=== PATIENT | female | born 1985 | race Two or more races ===

== ENCOUNTER 2020-05-08 06:18 | Emergency (ER) | payer MEDICAID, OTHER ==
[~2020-05-08] VITALS: Ht 172.7 cm; Wt 93.0 kg
[~2020-05-08 06:18] MED LIST: IBUPROFEN600 M1 ORAL; ONDANSETRON ODT4 MG BC; TYLENOL325 MG ORAL
[2020-05-08 06:27] VITALS: BP 118/88
[2020-05-08] MEDS ORDERED: Metoclopramide 10mg/2ml Inj IVP ONE (06:45)
[2020-05-08] MEDS ORDERED: Morphine Sulfate 4mg/ml Inj (IV USE ONLY) IVP ONE (06:45)
[2020-05-08 07:00] LABS: BASOPHILS % (AUTO) 0.8 % (0.0-2.0); EOSINOPHILS % (AUTO) 1.3 % (0.0-3.0); HEMOGLOBIN 15.1 G/DL (12.0-16.0); MEAN CORPUSCULAR VOLUME 87 FL (80-99); MONOCYTES % (AUTO) 5.3 % (1.0-10.0); NEUTROPHILS % (AUTO) 82.6 % (45.0-75.0); PLATELET COUNT 310 K/UL (150-450); RED BLOOD COUNT 4.97 M/UL (4.20-5.40); RED CELL DISTRIBUTION WIDTH 11.5 % (11.6-14.8); WHITE BLOOD COUNT 16.5 K/UL (4.8-10.8)
[2020-05-08 07:12] LABS: ANION GAP 11 mmol/L (5-15); BLOOD UREA NITROGEN 19 mg/dL (7-18); CALCIUM 9.1 MG/DL (8.5-10.1); CARBON DIOXIDE 25 MMOL/L (21-32); CHLORIDE 105 MMOL/L (98-107); POTASSIUM 3.9 MMOL/L (3.5-5.1); SODIUM 141 MMOL/L (136-145)
[2020-05-08 07:16] LABS: ALANINE AMINOTRANSFERASE 31 U/L (12-78); ALBUMIN 4.4 G/DL (3.4-5.0); ALBUMIN/GLOBULIN RATIO 1.2 (1.0-2.7); ALKALINE PHOSPHATASE 76 U/L (46-116); ASPARTATE AMINO TRANSFERASE 29 U/L (15-37); BILIRUBIN,TOTAL 0.4 MG/DL (0.2-1.0)
[2020-05-08 07:56] LABS: APPEARANCE,URINE CLEAR; BILIRUBIN, URINE NEGATIVE (NEGATIVE); COLOR,URINE BROWN; GLUCOSE, URINE (UA) NEGATIVE (NEGATIVE); KETONES,URINE 3+ (NEGATIVE); LEUKOCYTE ESTERASE ,URINE 2+ (NEGATIVE); NITRITE,URINE NEGATIVE (NEGATIVE); PH,URINE 6.5 (4.5-8.0); PROTEIN,URINE 2+ (NEGATIVE); UROBILINOGEN,URINE 1 MG/DL (0.0-1.0)
--- NOTE | 2020-05-08 09:28 | Emergency Room Report ---
History of Present Illness General Chief Complaint: Abdominal Pain Source: Patient Present Illness HPI 35-year-old female presents complaining of abdominal pain. Brought in by EMS from home. States symptoms started tonight. Pain is epigastric, burning, 9 out of 10, nonradiating. Notes nausea, denies vomiting. Denies fevers or chills. States she has had problem with her gallbladder before. No other aggravating relieving factors. Denies any other associated symptoms Allergies: Coded Allergies: No Known Allergies (Unverified , 02/10/20) COVID-19 Screening Contact w/high risk pt: No Recent Travel to affected area: No Experienced COVID-19 symptoms?: No COVID-19 Testing performed LABEL MAKER: No Patient History Past Medical History: none Past Surgical History: none Pertinent Family History: none Social History: Denies: smoking, alcohol use, drug use Now: No Immunizations: UTD Reviewed Nursing Documentation: PMH: Agreed; PSxH: Agreed Nursing Documentation-PMH Past Medical History: No Stated History Review of Systems All Other Systems: negative except mentioned in HPI Physical Exam Vital Signs Date Time Temp Pulse Resp B/P (MAP) Pulse Ox O2 Delivery O2 Flow Rate FiO2 05/08/20 06:19 98.2 120 17 118/88 (98) 99 Room Air Sp02 EP Interpretation: reviewed, normal General Appearance: alert, GCS 15, non-toxic, mild distress Head: normocephalic, atraumatic Eyes: bilateral eye normal inspection, bilateral eye PERRL ENT: hearing grossly normal, normal pharynx, no angioedema, normal voice Neck: full range of motion, supple/symm/no masses Respiratory: chest non-tender, lungs clear, normal breath sounds, speaking full sentences Cardiovascular #1: regular rate, rhythm, no edema Cardiovascular #2: 2+ carotid (R), 2+ carotid (L), 2+ radial (R), 2+ radial (L), 2+ dorsalis pedis (R), 2+ dorsalis pedis (L) Gastrointestinal: normal bowel sounds, soft, non-distended, no guarding, no rebound, tenderness Rectal: deferred Genitourinary: normal inspection, no CVA tenderness Musculoskeletal: back normal, normal range of motion, gait/station normal, non- tender Neurologic: alert, motor strength/tone normal, oriented x3, sensory intact, responsive, speech normal Psychiatric: judgement/insight normal, memory normal, mood/affect normal, no suicidal/homicidal ideation Reflexes: 3+ bicep (R), 3+ bicep (L), 3+ tricep (R), 3+ tricep (L), 3+ knee (R), 3+ knee (L) Skin: no rash Lymphatic: no adenopathy Medical Decision Making Diagnostic Impression: Primary Impression: Cholelithiasis Qualified Codes: K80.20 - Calculus of gallbladder without cholecystitis without obstruction ER Course Hospital Course 35-year-old F presents to ED with RUQ abdominal pain Differential diagnosis includes - pyelonephritis, kidney stone, gastritis, cholecystitis Clinical course Patient placed on stretcher. After initial history and physical I ordered labs, IV fluids, pain medications and US Labs - noted leukocytosis, electrolytes ok, LFTs normal, UA unremarkable US shows gallstones, no GB thickening, negative murphys sign, CBD dilated Upon reassessment, patient states pain has improved. Patient afebrile, nontoxic-appearing. Abdomen soft. LFTs unremarkable. No signs of biliary obstruction. Safe for discharge for close outpatient follow-up. States she is currently awaiting referral for surgery. States she is breast-feeding. I feel this is a highly complex case requiring extensive working including EKG/Rhythm strip, Xray/CT/US, Blood/urine lab work, repeat exams while in ED, and administration of strong opiates/narcotics for pain control, admission to hospital or close patient follow up. Diagnosis - cholelithiasis Stable and discharged to home with prescription for Motrin, tylenol, zofran. Followup with PMD. Return to ED if symptoms recur or worsen Laboratory Tests Test 05/08/20 06:50 05/08/20 07:10 White Blood Count 16.5 K/UL (4.8-10.8) H Red Blood Count 4.97 M/UL (4.20-5.40) Hemoglobin 15.1 G/DL (12.0-16.0) Hematocrit 43.0 % (37.0-47.0) Mean Corpuscular Volume 87 FL (80-99) Mean Corpuscular Hemoglobin 30.3 PG (27.0-31.0) Mean Corpuscular Hemoglobin Concent 35.0 G/DL (32.0-36.0) Red Cell Distribution Width 11.5 % (11.6-14.8) L Platelet Count 310 K/UL (150-450) Mean Platelet Volume 6.0 FL (6.5-10.1) L Neutrophils (%) (Auto) 82.6 % (45.0-75.0) H Lymphocytes (%) (Auto) 10.0 % (20.0-45.0) L Monocytes (%) (Auto) 5.3 % (1.0-10.0) Eosinophils (%) (Auto) 1.3 % (0.0-3.0) Basophils (%) (Auto) 0.8 % (0.0-2.0) Sodium Level 141 MMOL/L (136-145) Potassium Level 3.9 MMOL/L (3.5-5.1) Chloride Level 105 MMOL/L (98-107) Carbon Dioxide Level 25 MMOL/L (21-32) Anion Gap 11 mmol/L (5-15) Blood Urea Nitrogen 19 mg/dL (7-18) H Creatinine 1.0 MG/DL (0.55-1.30) Estimat Glomerular Filtration Rate > 60 mL/min (>60) Glucose Level 105 MG/DL (74-106) Calcium Level 9.1 MG/DL (8.5-10.1) Total Bilirubin 0.4 MG/DL (0.2-1.0) Aspartate Amino Transf (AST/SGOT) 29 U/L (15-37) Alanine Aminotransferase (ALT/SGPT) 31 U/L (12-78) Alkaline Phosphatase 76 U/L (46-116) Total Protein 8.1 G/DL (6.4-8.2) Albumin 4.4 G/DL (3.4-5.0) Globulin 3.7 g/dL Albumin/Globulin Ratio 1.2 (1.0-2.7) Lipase 187 U/L (73-393) Urine Color Brown Urine Appearance Clear Urine pH 6.5 (4.5-8.0) Urine Specific [place] 1.020 (1.005-1.035) Urine Protein 2+ (NEGATIVE) H Urine Glucose (UA) Negative (NEGATIVE) Urine Ketones 3+ (NEGATIVE) H Urine Blood 3+ (NEGATIVE) H Urine Nitrite Negative (NEGATIVE) Urine Bilirubin Negative (NEGATIVE) Urine Urobilinogen 1 MG/DL (0.0-1.0) H Urine Leukocyte Esterase 2+ (NEGATIVE) H Urine RBC 2-4 /HPF (0 - 2) H Urine WBC 2-4 /HPF (0 - 2) Urine Squamous Epithelial Cells Moderate /LPF (NONE/OCC) H Urine Bacteria Few /HPF (NONE) Urine Mucus Few /LPF (NONE/OCC) H Urine HCG, Qualitative Negative (NEGATIVE) CT/MRI/US Diagnostic Results CT/MRI/US Diagnostic Results : Imaging Test Ordered: ABD US Impression Procedure: US ABD Complete EXAM: ULTRASOUND US ABD Complete CLINICAL HISTORY: Abdominal pain. COMPARISON: None TECHNIQUE: Ultrasound examination of the abdomen includes grayscale images, and color and spectral doppler analysis. FINDINGS: The liver is mostly homogeneous but there is a circumscribed echogenic nodule in the left lobe approximately 1.1 x 1 cm likely a small hemangioma. Spleen is within normal limits. There are multiple small layering gallstones in the gallbladder. No significant distention of the gallbladder. No wall thickening. Common bile duct measures 8 mm. The pancreas is unremarkable to the extent visualized. The kidneys are normal in size, shape and axis. Aorta and cava are within normal limits. IMPRESSION: MULTIPLE LAYERING GALLSTONES. PATIENT NOT FOCALLY TENDER PRESENTLY. DILATED CBD. INCIDENTAL SMALL HEMANGIOMA LEFT LOBE OF THE LIVER. Last Vital Signs Date Time Temp Pulse Resp B/P (MAP) Pulse Ox O2 Delivery O2 Flow Rate FiO2 05/08/20 07:18 98.2 05/08/20 06:27 120 17 Room Air 05/08/20 06:27 118/88 99 Status: improved Disposition: HOME, SELF-CARE Condition: Stable Scripts Acetaminophen (Tylenol) 325 Mg Tablet 650 MG ORAL Q6H PRN for Prn Pain/Headache/Temp > 101, #20 TAB 0 Refills Prov: Leon Bonilla MD 05/08/20 Ibuprofen* (MOTRIN*) 600 Mg Tablet 600 MG ORAL Q8H PRN for FOR PAIN, #14 TAB 0 Refills Prov: Leon Bonilla MD 05/08/20 Ondansetron Odt* (ZOFRAN ODT*) 4 Mg Tab.rapdis 4 MG BC EVERY 8 HOURS, #6 TAB 1 Refill Prov: Leon Bonilla MD 05/08/20 Referrals: [facility],REFERRING (PCP) Leon Bonilla MD May 08, 2020 09:27
--- NOTE | 2020-05-08 09:33 | Diagnostic Imaging Report ---
EXAM: ULTRASOUND US ABD Complete CLINICAL HISTORY: Abdominal pain. COMPARISON: None TECHNIQUE: Ultrasound examination of the abdomen includes grayscale images, and color and spectral doppler analysis. FINDINGS: The liver is mostly homogeneous but there is a circumscribed echogenic nodule in the left lobe approximately 1.1 x 1 cm likely a small hemangioma. Spleen is within normal limits. There are multiple small layering gallstones in the gallbladder. No significant distention of the gallbladder. No wall thickening. Common bile duct measures 8 mm. The pancreas is unremarkable to the extent visualized. The kidneys are normal in size, shape and axis. Aorta and cava are within normal limits. IMPRESSION: MULTIPLE LAYERING GALLSTONES. PATIENT NOT FOCALLY TENDER PRESENTLY. DILATED CBD. INCIDENTAL SMALL HEMANGIOMA LEFT LOBE OF THE LIVER.
[2020-05-08] MEDS ORDERED: ONDANSETRON ODT4 MG BC (09:50)
[2020-05-08] MEDS ORDERED: TYLENOL325 MG ORAL (09:50)
[2020-05-08] MEDS ORDERED: IBUPROFEN600 M1 ORAL (09:50)
[2020-05-08 09:53] VITALS: BP 122/84
[2020-05-08 10:00] VITALS: BP 122/84
== END 2020-05-08 10:05 | disposition home or self-care (01) ==
LOC: EDUNIT# 06:18 → EDBD 06:18 → EMR 06:30
DX: K80.20 Calculus of gallbladder without cholecystitis without obstruction (principal)
CPT/HCPCS: 36415; 76700; 80053; 81003; 81025; 83690; 85025; 96361; 96374; 96375; J2270; J2765; J7030; S0028; Z7502; 99284